=== PATIENT | male | born 1950 | race Caucasian/White ===

== ENCOUNTER → 2020-03-02 14:42 | Outpatient (CLI) | payer MEDICARE, BC, SELFPAY ==
--- NOTE | 2020-03-02 | DI.US.S_ITS ---
PROCEDURE: US PERIPH VENOUS LOW EXTREM LT INDICATIONS: Thrombophlebitis of lower extremity TECHNIQUE: Real-time imaging, as well as color and pulse Doppler interrogation, were performed of the lower extremity deep veins from the inguinal ligament to the popliteal fossa. COMPARISON: None. FINDINGS: The common femoral, femoral and popliteal veins are normally compressible, and free of intraluminal thrombus. Color and pulse Doppler demonstrate normal phasic intraluminal flow. There is normal augmentation response to distal compression maneuver. Note is made of superficial varicosities along the left medial thigh, corresponding to the area of clinical bruising. IMPRESSION: Negative for deep venous thrombosis. Dictated by: Horace Franklin M.D. on 03/02/2020 at 15:52 Approved by: Horace Franklin M.D. on 03/02/2020 at 15:53
== END ==
PROVIDERS: Referring Provider Physician Assistant Medical; Visit Provider Physician Assistant Medical
DX: I80.3 Phlebitis and thrombophlebitis of lower extremities, unspecified (principal)
CPT/HCPCS: 93971